=== PATIENT | male | born 1990 | race Caucasian/White ===

== ENCOUNTER 2018-06-09 19:43 | Emergency (ER) | payer OTHER ==
[~2018-06-09] VITALS: Ht 190.5 cm; Wt 74.8 kg
[2018-06-09] MEDS ORDERED: CEPHALEXIN500 MG PO (21:12)
== END 2018-06-09 21:21 | disposition home or self-care (01) ==
LOC: ED 19:43
DX: I88.9 Nonspecific lymphadenitis, unspecified (principal); J02.9 Acute pharyngitis, unspecified; F17.200 Nicotine dependence, unspecified, uncomplicated
CPT/HCPCS: 87081; 87147; 87880; 99283

== ENCOUNTER 2021-11-25 18:48 | Emergency (ER) | payer BC ==
[~2021-11-25] VITALS: Ht 190.5 cm; Wt 73.8 kg
[~2021-11-25 18:48] MED LIST: CEPHALEXIN500 MG PO
== END 2021-11-25 20:34 | disposition home or self-care (01) ==
LOC: ED 18:48
DX: T23.201A Burn of second degree of right hand, unspecified site, initial encounter (principal); F17.200 Nicotine dependence, unspecified, uncomplicated; Z23 Encounter for immunization; X19.XXXA Contact with other heat and hot substances, initial encounter
CPT/HCPCS: 90471; 90714; 99283-25; A9270